=== PATIENT | female | born 1975 | race African-American/Black ===

== ENCOUNTER 2017-12-03 09:50 | Emergency (ER) | payer OTHER ==
[~2017-12-03] VITALS: Ht 162.6 cm; Wt 111.1 kg
--- NOTE | ~2017-12-03 | EKG ---
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: cweidiane : 1975 Requested By: Scotty Benz Order Number: [id number] MD: Samuel Hays Measurements Intervals [place] Rate: 68 P: 60 MT: 174 QRS: 31 QRSD: 81 T: 29 QT: 392 QTc: 417 Interpretive Statements Sinus rhythm RSR' in V1 or V2, probably normal variant Compared to ECG 06/09/2016 19:45:07 No significant changes Electronically Signed On 12-04-2017 7:53:12 CDT by Samuel Hays [email or web address] <ELECTRONICALLY SIGNED> By: Samuel Hays MD, [facility] 12/04/17 0753 1026 1026 Samuel Hays MD, [facility] /EPI
[~2017-12-03 09:50] MED LIST: BACTRIM DS TAB1 EACH PO; BENADRYL ALLERG25 MG PO; CARAFATE 1 GM TA1 G1 GT; CLARITIN10 MG PO; FAMOTIDINE20 MG PO; FLEXERIL PO; FLONASE; FLONASE 0.05%50 MCG NASAL; IBUPROFEN; IBUPROFEN 600600 M1 PO; MOBIC15 MG PO; NASAL DECONGESTA5 MG PO; NIFEDIPINE10 MG PO; NOHOMEMEDICATIONS; NORCO 5-325 TA1 EACH PO; PANTOPRAZOLE SO40 M1 PO; PENICILLIN VK500 M1 PO; PRENATAL PO; PREVACID 30MG C30 M1 PO; PRILOSEC 20 MG20 MG PO; RANITIDINE; TRAMADOL 50 MG50 MG PO; ULTRAM 50MG TAB50 MG PO; ZANAFLEX4 MG PO
[2017-12-03 10:28] LABS: ABSOLUTE NEUTROPHILS 3.1 thou/uL (1.4-8.2); BASOPHILS 0.8 % (0.0-2.0); EOSINOPHILS 0.6 % (0.0-3.0); HEMATOCRIT 37.3 % (37.0-47.0); HEMOGLOBIN 12.6 gm/dL (12.0-15.0); LYMPHOCYTES 36.8 % (24.0-44.0); MCH 30.1 pg (26.0-34.0); MCHC 33.8 g/dL (28.0-37.0); MCV 89.2 fL (80.0-100.0); MONOCYTES 8.9 % (1.0-8.0); PLATELET COUNT 290 thou/uL (150-400); POLYS 52.9 % (36.0-66.0); RBC 4.18 mil/uL (4.20-5.00); RDW 13.6 % (10.5-14.5); WBC 5.9 thou/uL (4.0-11.0)
[2017-12-03 10:39] LABS: ANION GAP 9 mmol/L (7-16); BUN 7 mg/dL (7-18); CALCIUM 9.2 mg/dL (8.5-10.1); CHLORIDE 100 mmol/L (98-107); CO2 26 mmol/L (21-32); GLUCOSE 105 mg/dL (74-106); POTASSIUM 3.4 mmol/L (3.5-5.1); SODIUM 135 mmol/L (136-145)
[2017-12-03 10:48] LABS: ALBUMIN 3.7 g/dL (3.4-5.0); LIPASE 90 U/L (73-393); SGOT 14 U/L (15-37); SGPT 21 U/L (30-65); TOTAL BILIRUBIN 0.2 mg/dL (<0.1-1.0); TROPONIN-I <0.06 ng/mL (<0.06)
[2017-12-03] MEDS ORDERED: CYCLOBENZAPRINE5 MG PO (11:05)
[2017-12-03] MEDS ORDERED: CARAFATE 1 GM TA1 G1 PO (11:05)
[2017-12-03] MEDS ORDERED: HYDROCHLOROTH12.5 M1 PO (11:14)
[2017-12-03 11:30] VITALS: BP 169/85
[2017-12-03 11:34] LABS: URINE BILIRUBIN NEGATIVE (Negative); URINE BLOOD NEGATIVE (Negative); URINE CLARITY CLEAR; URINE GLUCOSE-RANDOM* NEGATIVE (Negative); URINE KETONES NEGATIVE (Negative); URINE LEUKOCYTES NEGATIVE (Negative); URINE NITRITE NEGATIVE (Negative); URINE PROTEIN (DIPSTICK) NEGATIVE (Negative); URINE SPECIFIC GRAVITY <= 1.005 (1.005-1.035); URINE UROBILINOGEN 0.2 E.U./dl (0.2-1.0)
[2017-12-03 11:36] LABS: URINE COLOR COLORLESS
== END 2017-12-03 11:31 | disposition home or self-care (01) ==
LOC: ER 09:50
PROVIDERS: Physician Assistant
DX: K29.70 Gastritis, unspecified, without bleeding (principal); I10 Essential (primary) hypertension; M62.830 Muscle spasm of back; K21.9 Gastro-esophageal reflux disease without esophagitis